=== PATIENT | female | born 1960 | race African-American/Black ===

== ENCOUNTER 2021-05-01 23:46 | Observation (INO) ==
[2021-05-02 00:44] LABS: Basophils % 0.7 % (0.0-0.8); Eosinophils # 0.1 10*3/uL (0.0-0.87); Hematocrit 37.6 VOL% (35.7-47.0); Hemoglobin 11.7 GM/DL (12.0-16.0); Immature Granulocytes % 0.2 %; Immature Granulocytes Absolute 0.01 #; Lymphocytes # 3.2 10*3/uL (1.4-4.0); Lymphocytes % 53.4 % (21.3-54.2); Mean Corpuscular HGB Conc 31.1 GM/DL (32-36); Mean Platelet Volume 10.7 FL (9.6-12.0); Monocytes % 7.5 % (1.7-12.7); Neutrophils % 36.2 % (38.7-73.9); Platelet Count 209 T/CUMM (130-400); Red Blood Count 4.37 MC/CUMM (3.8-5.5); Red Cell Distribution Width 13.9 % (9.3-17.3)
[2021-05-02 00:49] LABS: Alanine Aminotransferase 21 U/L (13-56); Albumin 3.5 G/DL (3.4-5.0); Alkaline Phosphatase 63 U/L (45-117); Aspartate Amino Transferase 23 U/L (0-37); Bilirubin,Total < 0.39 MG/DL (0.20-1.00); Blood Urea Nitrogen 17 MG/DL (7-18); Calcium 8.9 MG/DL (8.5-10.1); Carbon Dioxide 33 MMOL/L (21-32); Estimated Glom Filtration Rate 82 ML/MIN; Glucose 98 MG/DL (74-106); Osmolality,Calculated 278.5 MOS/KG (273-304); Potassium 3.5 MMOL/L (3.5-5.1); Sodium 139 MMOL/L (136-145); Total Protein 7.1 G/DL (6.4-8.2)
[2021-05-02 01:17] LABS: INR 0.9; PT Patient Result 10.3 SECS (10.5-12.0); Partial Thromboplastin Time 27.9 SECS (23.8-32.1)
[2021-05-02 02:04] LABS: Eosinophils 2 % (0-10); Lymphocytes 56 % (20-55); Platelet Estimate Adequate; Segmented Neutrophils 37 % (50-85); Target Cells 1+; Total Cells Counted 100
[2021-05-02] MEDS ORDERED: MORPHINE 2 MG/1 ML SYRINGE IV STA (03:41)
[2021-05-02] MEDS ORDERED: ASPIRIN 325 MG TABLET PO STA (03:41)
[2021-05-02] MEDS ORDERED: NITROGLYCERIN 2% OINT 1 INCH/GM PACK TOP STA (03:41)
[2021-05-02] MEDS ORDERED: ONDANSETRON 4 MG/2 ML VIAL IV STA (03:41)
[2021-05-02] MEDS ORDERED: ENOXAPARIN 100 MG/ML SYRINGE SUBCUT STA (03:41)
[2021-05-02] MEDS ORDERED: ENOXAPARIN 120 MG/0.8 ML SYRINGE SUBCUT STA (03:44)
[2021-05-02] MEDS ORDERED: FAMOTIDINE 20 MG/2 ML VIAL IV STA (03:49)
[2021-05-02] MEDS ORDERED: methylPREDNISolone SOD SUC 125 MG/2 ML VIAL IV STA (03:50)
[2021-05-02] MEDS ORDERED: PANTOPRAZOLE 40 MG VIAL IV STA (03:50)
[2021-05-02] MEDS ORDERED: GLUCAGON 1 MG VIAL IM PRN (05:14)
[2021-05-02] MEDS ORDERED: NITROGLYCERIN SL 0.4 MG TABLET SL PRN (05:14)
[2021-05-02] MEDS ORDERED: ALUM/MAG/SIMETH/LIDO VISC 1:1 30 ML BOTTLE PO STA (05:14)
[2021-05-02] MEDS ORDERED: MORPHINE 2 MG/1 ML SYRINGE IV PRN (05:14)
[2021-05-02] MEDS ORDERED: DEXTROSE 10% 250 ML BAG IV PRN (05:14)
[2021-05-02] MEDS ORDERED: SIMETHICONE CHEW 80 MG TABLET PO PRN (05:20)
[2021-05-02 07:18] LABS: Risk Ratio 3.92; Thyroid Stimulating Hormone 5.53 uIU/ml (0.358-3.74); VLDL Cholesterol 9.8 MG/DL
[2021-05-02] MEDS ORDERED: LOSARTAN 25 MG TABLET PO SCH (09:00)
[2021-05-02] MEDS ORDERED: carvediloL 3.125 MG TABLET PO SCH (09:00)
[2021-05-02] MEDS: ACETAMINOPHEN 325 MG TABLET PO PRN ×2 (11:15→14:11)
[2021-05-02 12:42] LABS: Calcium 9.1 MG/DL (8.5-10.1); Osmolality,Calculated 275.7 MOS/KG (273-304); Potassium 3.6 MMOL/L (3.5-5.1)
[2021-05-02] MEDS ORDERED: BUTALBITAL/ACETAMIN/CAFFEINE 50-325-40 MG TABLET PO PRN (14:22)
[2021-05-02] MEDS ORDERED: SUMAtriptan 25 MG TABLET PO PRN (14:22)
[2021-05-02] MEDS ORDERED: ACETAMINOPHEN 325 MG TABLET PO PRN (14:24)
[2021-05-02] MEDS ORDERED: ENOXAPARIN 120 MG/0.8 ML SYRINGE SUBCUT ONE (16:00)
[2021-05-02] MEDS: PANTOPRAZOLE 40 MG VIAL IV SCH ×2 (16:59→20:44)
[2021-05-02] MEDS ORDERED: BISACODYL 5 MG TABLET PO PRN (20:19)
[2021-05-02] MEDS: traZODone 50 MG TABLET PO SCH (20:44)
[2021-05-02] MEDS: carvediloL 6.25 MG TABLET PO SCH (20:44)
[2021-05-03 06:25] LABS: Basophils % 0.4 % (0.0-0.8); Eosinophils % 0.1 % (0.00-10.9); Hematocrit 33.9 VOL% (35.7-47.0); Hemoglobin 10.7 GM/DL (12.0-16.0); Immature Granulocytes % 0.4 %; Immature Granulocytes Absolute 0.03 #; Lymphocytes # 2.1 10*3/uL (1.4-4.0); Lymphocytes % 31.1 % (21.3-54.2); Mean Corpuscular HGB Conc 31.6 GM/DL (32-36); Mean Corpuscular Volume 84.5 FL (87-102); Mean Platelet Volume 10.7 FL (9.6-12.0); Monocytes % 7.4 % (1.7-12.7); Neutrophils % 60.6 % (38.7-73.9); Platelet Count 202 T/CUMM (130-400); Red Blood Count 4.01 MC/CUMM (3.8-5.5); White Blood Count 6.8 T/CUMM (4-12)
[2021-05-03] MEDS ORDERED: ASPIRIN EC 325 MG TABLET PO SCH (09:00)
[2021-05-03] MEDS: PANTOPRAZOLE 40 MG VIAL IV SCH ×2 (10:35→20:58)
[2021-05-03] MEDS: LACTATED RINGERS 1,000 ML IV SCH (12:08)
[2021-05-03] MEDS ORDERED: ONDANSETRON 4 MG/2 ML VIAL ONE (12:44)
[2021-05-03] MEDS ORDERED: LIDOCAINE 2% 5 ML VIAL ONE (12:44)
[2021-05-03] MEDS ORDERED: propofoL 200 MG/20 ML VIAL IV ONE ×2 (12:44→12:56)
[2021-05-03] MEDS ORDERED: MORPHINE 4 MG/1 ML VIAL IV PRN (12:57)
[2021-05-03] MEDS ORDERED: ONDANSETRON 4 MG/2 ML VIAL IV ONE (13:09)
[2021-05-03] MEDS: CETIRIZINE 10 MG TABLET PO SCH (14:02)
[2021-05-03] MEDS: VALSARTAN 160 MG TABLET PO SCH (14:03)
[2021-05-03] MEDS: carvediloL 6.25 MG TABLET PO SCH ×2 (14:03→20:58)
[2021-05-03] MEDS: ASPIRIN EC 81 MG TABLET PO SCH (14:03)
[2021-05-03] MEDS: hydroCHLOROthiazide 25 MG TABLET PO SCH (14:03)
[2021-05-03] MEDS: traZODone 50 MG TABLET PO SCH (20:58)
[2021-05-04 07:56] LABS: Basophils % 0.4 % (0.0-0.8); Eosinophils # 0.1 10*3/uL (0.0-0.87); Eosinophils % 1.4 % (0.00-10.9); Hematocrit 36.3 VOL% (35.7-47.0); Hemoglobin 11.3 GM/DL (12.0-16.0); Immature Granulocytes % 0.2 %; Immature Granulocytes Absolute 0.01 #; Lymphocytes # 2.5 10*3/uL (1.4-4.0); Lymphocytes % 51.8 % (21.3-54.2); Mean Corpuscular HGB Conc 31.1 GM/DL (32-36); Mean Corpuscular Volume 85.2 FL (87-102); Mean Platelet Volume 10.2 FL (9.6-12.0); Monocytes % 4.7 % (1.7-12.7); Neutrophils % 41.5 % (38.7-73.9); Platelet Count 211 T/CUMM (130-400); Red Blood Count 4.26 MC/CUMM (3.8-5.5); Red Cell Distribution Width 14.3 % (9.3-17.3); White Blood Count 4.9 T/CUMM (4-12)
[2021-05-04 08:12] LABS: Calcium 9.1 MG/DL (8.5-10.1); Osmolality,Calculated 278.5 MOS/KG (273-304)
[2021-05-04] MEDS: hydroCHLOROthiazide 25 MG TABLET PO SCH (09:07)
[2021-05-04] MEDS: carvediloL 6.25 MG TABLET PO SCH (09:07)
[2021-05-04] MEDS: ASPIRIN EC 81 MG TABLET PO SCH (09:07)
[2021-05-04] MEDS: VALSARTAN 160 MG TABLET PO SCH (09:07)
[2021-05-04] MEDS: CETIRIZINE 10 MG TABLET PO SCH (09:07)
[2021-05-04] MEDS: PANTOPRAZOLE 40 MG VIAL IV SCH (09:08)
[2021-05-04] MEDS: LACTATED RINGERS 1,000 ML IV SCH (13:25)
[2021-05-04 13:26] VITALS: BP 100/73
== END 2021-05-04 13:10 | disposition home or self-care (01) ==
LOC: N.ED 23:46 → N.EDINP 23:46 → N.TELEN 05-02 05:48
PROVIDERS: ADMIT Internal Medicine; ATTEND Internal Medicine